=== PATIENT | male | born 1955 | race Caucasian/White ===

== ENCOUNTER 2020-02-11 09:25 | Emergency (ER) | payer OTHER ==
[~2020-02-11] VITALS: Ht 170.2 cm; Wt 75.0 kg
[~2020-02-11 09:25] MED LIST: ALPR0.25 PO; ASPI-13 PO; LISI-167 PO; LOVA20TA2 PO
--- NOTE | 2020-02-11 09:45 | NUR ---
PT WITH C/O CHOKING AFTER EATING A SAUSAGE CROISANT SANDWICH. THREW UP PHLEM, PT PT UNABLE TO CLEAR. PT ATTEMTING TO CLEAR THROAT, SPITTING FREQUENTLY. PT GIVEN SUCTION, EMESIS BAG. PLACED ON 2LNC PER PRECATION/SAFTEY, PT SATING 98%. PT DEMONSTRATES NO RESP DISTRESS CURRENTLY. PIV INITIATED, PT TO ALL MONITORS. ERMD IN TO EVAL PT
[2020-02-11] MEDS ORDERED: GLUCAGON 1 MG ONE (09:56)
[2020-02-11] MEDS ORDERED: GLUCAGON 1 MG IVPush PRN (10:00)
[2020-02-11] MEDS ORDERED: SODIUM CHLORIDE FLUSH 10ML SYR IVF ONE (10:00)
--- NOTE | 2020-02-11 10:10 | NUR ---
PT GIVEN WATER PER ERMD OK, PT ABLE TO TAKE TWO SIPS THEN COUGHS. ERMD UPDATED.
[2020-02-11 10:34] VITALS: BP 150/76
== END 2020-02-11 11:30 | disposition home or self-care (01) ==
LOC: ED 10:08
DX: T18.128A Food in esophagus causing other injury, initial encounter (principal); R11.10 Vomiting, unspecified; R09.89 Other specified symptoms and signs involving the circulatory and respiratory systems; I10 Essential (primary) hypertension; X58.XXXA Exposure to other specified factors, initial encounter; Y93.89 Activity, other specified; Y92.89 Other specified places as the place of occurrence of the external cause; Y99.8 Other external cause status
CPT/HCPCS: 96374; 99283; J1610